=== PATIENT | male | born 1980 | race Hispanic/Latino ===

== ENCOUNTER 2017-06-13 03:34 | Emergency (ER) | payer OTHER ==
[2017-06-13 03:49] VITALS: BP 141/89
[2017-06-13] MEDS ORDERED: TORADOL IM ONE (05:48)
[2017-06-13] MEDS ORDERED: DECADRON IM STA (05:48)
--- NOTE | 2017-06-13 05:48 | Emergency Department Report ---
Upper Extremity - HPI Chief Complaint: Extremity Problem,Nontraumatic Stated Complaint: R SHOULDER PAIN Time Seen by Provider: 06/13/17 05:39 Upper Extremity: Right Shoulder (patient reports pain starts at his right neck and radiated into his right shoulder it feels achy in and deep and it is 6 out of 10. 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 He's had similar episode in the past. He said this is been going on for 3 days and he went to the chiropractor he got better but it started again. Patient said he has a slipped disc in his neck.) Occurred When: 3 Days Mechanism: Other (lifting heavy objects with history of slip disc in his neck) Severity: moderate Symptoms: Yes Pain with Movement (right shoulder), Yes Limited Range of Movement (right shoulder), No Deformity, No Numbness, No Weakness, No Swelling, No Bruising/Ecchymosis, No Laceration or Abrasion Other History: Patient here reported right shoulder pain that radiated from his neck after lifting heavy object. He said this happened 3 days ago when he went to the chiropractor but he did not get complete relief. She reported pain 10 out of 10 that feels achy and deep. Patient reports history of slipped disc in his neck and had this kind of pain before. Denies any fever or chills. Denies any nausea or vomiting. Denies any numbness or tingling to extremities. Eyes any chest pain or shortness of breath. Patient only medical history is chronic neck pain with radiation of pain to his arm and shoulder. Seen by a chiropractor and [id number] pain medication without any relief ED Review of Systems ROS: Stated complaint: R SHOULDER PAIN Other details as noted in HPI Comment: All other systems reviewed and negative Constitutional: denies: chills, fever Respiratory: no symptoms reported Cardiovascular: denies: chest pain, palpitations, edema, syncope Gastrointestinal: denies: abdominal pain, nausea, vomiting Musculoskeletal: arthralgia. denies: back pain, joint swelling, myalgia Skin: denies: rash Neurological: denies: headache, weakness, numbness, paresthesias, confusion, abnormal gait, vertigo ED Past Medical Hx - Past Medical History Previous Medical History?: Yes Additional medical history: Chronic pain. Slipped disc neck - Surgical History Past Surgical History?: No - Family History Family history: no significant - Social History Smoking Status: Current Every Day Smoker Substance Use Type: Alcohol - Medications Home Medications: Home Medications Medication Instructions Recorded Confirmed Last Taken Type Acetaminophen/Codeine [Tylenol 1 tab PO Q6H PRN #12 tab 06/13/17 Unknown Rx /Codeine # 3 tab] Ibuprofen [Motrin] 600 mg PO Q8H PRN #15 tablet 06/13/17 Unknown Rx Upper Extremity Exam - Exam General: Vital signs noted. No distress. Alert and acting appropriately. This is a 36-year-old male well-nourished well-developed in no acute distress. Head and Torso: No HEENT Abnormality (normal exam), No Neck Tenderness (full range of motion, supple, no C-spine tenderness and no muscular tenderness.), No Chest/Lungs Abnormality (clear to auscultate bilaterally, no rhonchi wheezes or rales), No Abdominal Tenderness (nontender to palpate in all quadrants, normal bowel sounds), No Back Tenderness (no vertebral or paraspinal tenderness. Full range of motion and normal inspection) Shoulder Exam: Yes Normal Range of Motion in Shoulder (patient with full range of motion but he said his hurts to raise his right shoulder over his head.), No Shoulder Tenderness (nontender to palpate, no joint deformity, crepitus or erythema.), No Clavicle Tenderness, No Shoulder Deformity, No AC Joint Tenderness Arm Exam: No Arm/Humerus Tenderness, No Arm Deformity Elbow: Yes Normal Range of Motion in Elbow, No Elbow Tenderness, No Elbow Deformity Forearm: No Forearm Tenderness, No Forearm Deformity, No Pain with Pronation, No Pain with Supination Wrist: Yes Normal ROM in Wrist, No Wrist Tenderness, No Wrist Deformity, No Snuffbox Tenderness, No Pain with Axial Thumb Compression Hand: Yes Normal ROM in Digit(s), No Hand Tenderness, No Hand Deformity, No Digit Tenderness, No Digit(s) Deformity, No Tendon Dysfunction CMS Exam: Yes Normal Distal Pulses, Yes Normal Capillary Refill, Yes Normal Distal Sensation, No Broken Skin ED Course Vital Signs 06/13/17 03:44 Temperature 98.0 F Pulse Rate 102 H Respiratory 16 Rate Blood Pressure 141/89 O2 Sat by Pulse 98 Oximetry Vital Signs 06/13/17 06/13/17 03:44 05:55 Temperature 98.0 F Pulse Rate 102 H 89 Respiratory 16 Rate Blood Pressure 141/89 O2 Sat by Pulse 98 98 Oximetry - Reevaluation(s) Reevaluation #1: 06/13/17 06:19 Patient given Decadron 10 mg IM and Toradol 60 mg IM and emergency room for pain to left shoulder. ED Medical Decision Making - Radiology Data Radiology results: report reviewed X-ray of left shoulder reveals no acute distress fracture or dislocation. X-ray of C-spine revealed mild sequela of disc degeneration at C6-C7. No acute findings. - Medical Decision Making ED course: Here complaining of shoulder pain that is coming from his neck and nradiating to his right shoulder. Patient reports that he has slipped disc in his neck and knees had this pain before. Said he usually go to a chiropractor and he gets better but he went 3 days ago when it started after he lifted heavy objects and it didn't relieve his pain. X-ray of left shoulder reveal no acute bony abnormality and x-ray of C-spine revealed C6-7 disc space narrowing with associated and played spondylolisthesis otherwise no acute findings. Pt was given Decadron 10 mg IM and Toradol 60 mg IM and emergency room. Patient discharged home and I referred him to neurosurgeon to call in the morning to schedule an appointment for follow-up visit. He does have access to primary care and to other physicians. Patient discharged home with prescription for Tylenol 3 and Motrin. Critical care attestation.: If time is entered above; I have spent that time in minutes in the direct care of this critically ill patient, excluding procedure time. ED Disposition Clinical Impression: Cervical radiculopathy due to degenerative joint disease of spine, Arthralgia of right shoulder region Disposition: DC-01 TO HOME OR SELFCARE Is pt being admited?: No Does the pt Need Aspirin: No Condition: Stable Instructions: Cervical Radiculopathy (ED), Arthralgia (ED) Additional Instructions: Follow-up with neurosurgeon as instructed. I referred You to internal medicine doctor Dr. Bart Vick please call in the morning to schedule an appointment for physical exam. Please take Tylenol No. 3 while [address] or operating heavy machinery as this medication causes drowsiness Prescriptions: Acetaminophen/Codeine [Tylenol /Codeine # 3 tab] 1 tab PO Q6H PRN #12 tab PRN Reason: Pain Ibuprofen [Motrin] 600 mg PO Q8H PRN #15 tablet PRN Reason: Pain Referrals: MARC MORA MD [Staff Physician] - 3-5 Days MARK VICK MD [Staff Physician] - 3-5 Days Forms: Work/School Release Form(ED)
--- NOTE | 2017-06-13 05:50 | XRay Report ---
FINAL REPORT EXAM: XR SHOULDER 2 RT HISTORY: RIGHT SHOULDER PAIN COMPARISONS: None. FINDINGS: Three views right shoulder Right glenohumeral joint appears intact. Acromioclavicular and coracoclavicular intervals are within normal limits. No displaced fractures. Incomplete evaluation of the adjacent right lung is unremarkable. IMPRESSION: Unremarkable right shoulder radiographs.
--- NOTE | 2017-06-13 05:52 | XRay Report ---
FINAL REPORT EXAM: XR SPINE CERVICAL 2-3V HISTORY: NECK PAIN COMPARISONS: None FINDINGS: Three views of the cervical spine Cervical lordosis is within normal limits. Mild intervertebral disc space narrowing at C6-C7 with associated endplate spondylosis. Vertebral body heights and intervertebral disc spaces are otherwise preserved. No fractures. Prevertebral soft tissues are within normal limits. Incomplete evaluation of the lung apices is unremarkable. IMPRESSION: Mild sequela of disc degeneration at C6-C7. No acute finding. Consider additional imaging for worsening/persistent symptoms.
== END 2017-06-13 06:31 | disposition home or self-care (01) ==
LOC: ED 03:34
DX: M50.30 Other cervical disc degeneration, unspecified cervical region (principal); M25.511 Pain in right shoulder; G89.29 Other chronic pain; F17.200 Nicotine dependence, unspecified, uncomplicated
CPT/HCPCS: 72040; 73030; 96372; 99283; J1100; J1885